=== PATIENT | female | born 1965 | race Caucasian/White ===

== ENCOUNTER → 2022-09-14 11:28 | Outpatient (CLI) | payer OTHER, SELFPAY ==
[2022-09-14 13:50] LABS: Cancer Antigen 125 8.4 U/mL (0-35)
== END ==
PROVIDERS: PCP Family Medicine; Referring Provider Obstetrics & Gynecology; Visit Provider Obstetrics & Gynecology
DX: N83.202 Unspecified ovarian cyst, left side (principal)
CPT/HCPCS: 36415; 86304

== ENCOUNTER 2022-12-08 09:41 | Day surgery (SDC) | payer OTHER, SELFPAY ==
[2022-11-30 12:42] VITALS: BMI 28.1
[2022-12-08] VITALS (7 sets, daily range): BP systolic 85–122; BP diastolic 56–75; PULSE 60–73; RESP 12–18; TEMP 36.3–36.7; O2SAT 97–100; BMI 28.1
--- NOTE | 2022-12-08 | PATH_ITS ---
[facility] Accession Number: [id number] No. of containers..01 Tissue . 01 Material submitted: . endometrium - ENDOMETRIAL POLYP . 01 Diagnosis: A. Endometrial Polyp, Polypectomy: Inactive polypoid endometrium with features of benign adenomyoma(s). No evidence of endometrioid intraepithelial neoplasia or malignancy. V 12/22/2022 0512 Local . 01 Electronically signed: . Ariadne Baker MD, Pathologist NPI- [id number] . 01 Gross description: . The specimen is received in formalin labeled with the patient's name, , and endometrial polyp consists of multiple moss soft tissue fragments aggregating to 2.5 x 2.3 x 0.4 cm. The largest fragment is inked and bisected. The remaining fragments are filtered. Specimen is submitted entirely as follows: A1: Bisected fragment. A2: Filtered fragments. ([id number]) /MRV 12/15/2022 1750 Local . 01 Pathologist provided ICD-10: N84.0, N80.03 . 01 CPT . 070441 Specimen Comment: A courtesy copy of this report has been sent to [phone] Performed at: 01 [facility] [address] [place] [address] [address] [facility], [place], [place] [id number] MD Shahram Fritz MD Phone: [phone]
[2022-12-08] MEDS: LACTATED RINGERS 1,000 ML 100 ML IV ×2 (10:12→12:50)
--- NOTE | 2022-12-08 11:54 | P.HPOB_ITS ---
History of Present Illness History of Present Illness Narrative: Yesica Schwartz is a 57 year old female 0 with a 1 cm endometrial lining consistent with a polyp She is here for a D&C hysteroscopy with removal of the polyp [facility] Medical History (Updated 12/08/22 @ 09:58 by Shilpa Lewis RN) Heart murmur IBS (irritable bowel syndrome) Social History household members: spouse Smoking Status: Never smoker alcohol intake: current Meds Home Medications and Allergies Home Medications Medication Instructions Recorded Confirmed Type No Known Home Medications 04/28/22 12/08/22 History Allergies Allergy/AdvReac Type Severity Reaction Status Date / Time Penicillins [PENICILLINS] Allergy Mild Verified 12/08/22 09:47 polymyxin B AdvReac Mild Verified 12/08/22 09:57 Exam Vital Signs (past 8 hours): - 12/08/22 09:58 Temperature 97.3 F L Pulse Rate 61 Respiratory Rate 16 Blood Pressure 122/75 Pulse Oximetry 100 Oxygen Delivery Method Room Air Oxygen Delivery Method Room Air Narrative Exam Narrative: HEENT: No thyromegaly, no anterior cervical or supraclavicular lymphadenopathy. Lungs:Clear to auscultation bilaterally, no wheezes. Cardiovascular: Regular rate and rhythm, no murmurs, rubs, or gallops. Abdomen: No scars. No hepatosplenomegaly. No masses palpable. External genitalia: Normal Vagina: Normal Cervix: Normal Bimanual exam: 6 Week size uterus. Mobile. Extremities: No edema Assessment & Plan Assessment & Plan narrative: Assessment: 57-year-old 0 with a 1 cm endometrial lining consistent with a polyp Plan: D&C hysteroscopy with polypectomy The risks, benefits, and alternatives to the procedure were explained to the patient. The risks including bleeding, infection, and uterine perforation. She understands these risks and agrees to proceed. A full par Q was held and consent form was signed. Time Spent With Patient Time with patient: less than 30 minutes
--- NOTE | 2022-12-08 11:56 | PM.PREOP ---
Pre-operative Note COVID-19 Criteria for continued procedure: Non-surgical alternatives not available or appropriate per current SOC Interval Note History & Physical reviewed/Exam performed by Physician: Yes Changes to H&P: No H&P completed within 30 days and has changed as indicated here:: 12/08/22
--- NOTE | 2022-12-08 12:35 | SUR.OPER ---
Lithotomy on padded OR bed, head on pillow, arms secured on padded arm boards at <90 degrees abduction. Legs secured in padded yellow fins stirrups.
--- NOTE | 2022-12-08 13:00 | PM.GYNOP.1 ---
Operative Date/Time/Diagnoses Date of procedure: 12/08/22 Time of procedure: 13:00 Pre-op diagnosis: Endometrial hyperplasia Findings on ultrasound consistent with a polyp Post-op diagnosis: same Procedure & Clinicians Procedure: Procedures Operation Date: 12/08/22 10:45 Actual Procedure Side Surgeon huber D&Madai Hysteroscopy W/ Resection of Polyp Bridget Burks MD Indications: Endometrial hyperplasia Findings on ultrasound consistent with a polyp Surgeon: Bridget Burks Anesthesia Type: Sedation Operative Notes Findings: 6 week size anteverted uterus Large polyp arising from the right cornua Left fallopian tube ostia observed Closure Type: not applicable Specimen(s): endometrial polyp Estimated blood loss (mL): 5 Blood products transfused: none Procedure in detail: After informed consent was obtained, the patient was taken to the operating room where she was placed in the dorsal supine position. After adequate sedation was achieved, she was placed in the dorsal lithotomy position, and prepped and draped in the usual sterile fashion. A time-out was performed. A bivalve speculum was placed into the vagina. A single-tooth tenaculum was placed on the anterior lip of the cervix. The cervical os was sequentially dilated to the # 8 Hegar dilator. The hysteroscope passed easily into the endometrial cavity. There was a large polyp originating from the right cornua of the uterus. The right fallopian tube ostia was not observed. The left fallopian tube ostia was observed. The hysteroscope was removed. The cervix was then dilated to the # 10 Hegar dilator. The resectoscope passed easily into the endometrial cavity. Using the loop with settings at 80 cut and 60 cautery, the polyp was resected in 5 pieces. The base of the polyp was cauterized. Hemostasis was achieved. The resectoscope was removed from the uterus. The single-tooth tenaculum was removed from the anterior lip of the cervix. The bivalve speculum was removed from the vagina. Sponge, lap, and instrument counts were correct x2. The patient tolerated the procedure well, and was taken to PACU in stable condition. Complications: none Post-operative Condition: stable Disposition: PACU Plan for aftercare: Home after recovery
== END 2022-12-08 13:36 | disposition home or self-care (01) ==
PROVIDERS: PCP Family Medicine; Referring Provider Obstetrics & Gynecology; Visit Provider Obstetrics & Gynecology
PROC: 0UDB8ZZ Extraction of Endometrium, Via Natural or Artificial Opening Endoscopic (ICD-10-PCS; CPT 58558; principal; 2022-12-08 10:45)
DX: N84.0 Polyp of corpus uteri (principal)
CPT/HCPCS: 58558; J1170; J2405; J2704; J3010